=== PATIENT | female | born 1950 | race Caucasian/White ===

== ENCOUNTER 2023-04-15 18:25 | Outpatient (CLI) | payer MEDICARE, SELFPAY | END 2023-04-15 18:26 | disposition home or self-care (01) | LOC: AMB 04-20 11:55 | PROVIDERS: Visit Provider Family Medicine | DX: R55 Syncope and collapse (principal) | CPT/HCPCS: A0425; A0427 ==

== ENCOUNTER 2023-04-15 18:46 | Emergency (ER) | payer MEDICARE, SELFPAY ==
[2023-04-15 18:51] VITALS: BP 129/81; PULSE 75; RESP 18; TEMP 36.8; O2SAT 94; BMI 28.3
[2023-04-15 19:00] VITALS: PULSE 65; O2SAT 98
[2023-04-15 19:02] VITALS: BP 131/80; PULSE 66; O2SAT 96
[2023-04-15 19:15] VITALS: PULSE 63; O2SAT 98
--- NOTE | 2023-04-15 19:20 | ED_ITS ---
HPI - General Adult General Chief complaint: Syncope/Fainted Stated complaint: Syncopal Time Seen by Provider: 04/15/23 19:03 History of Present Illness HPI narrative: walking and sudden onset of weakness, by stander states syncopal episode. upon arrival to ED, pt states she feels a little better 72-year-old woman presenting to the emergency department after an apparent syncopal event. She had actually been sitting at the time and will then began to feel lightheaded and passed out. Has been a long day. Has been up and out at [employer]. Feels that she was keeping up on fluids. There was no sense of palpitations or irregular heartbeat. Does not have a history of migraines. No family history of sudden cardiac unusual arrhythmias. No vomiting or nausea. Is feeling a little better. I perceive her to be a little ?goofy? in conversation. No history of seizures. No loss of bowel or bladder control. Does admit that she did not have much to eat today. Related Data Home Medications Medication Instructions Recorded Confirmed lisinopril 04/15/23 simvistatin 04/15/23 Allergies Allergy/AdvReac Type Severity Reaction Status Date / Time Sulfa (Sulfonamide Allergy Verified 04/15/23 18:55 Antibiotics) Review of Systems Status of ROS: Reports: 6 or more systems reviewed and unremarkable except as noted in History and below Exam Narrative: Exam Narrative: Seems a little odd ?goofy? affect. I would question her recall and clarity of thought otherwise. Cranial nerves 2-12 intact. Speaking fluidly. Breathing easily. Lungs clear. Heart in regular rate and rhythm without murmur rub or gallop. Abdomen is soft nontender. She is moving all extremities with good strength. There is no significant edema. Head is atraumatic. Neck is supple nontender back also nontender. No indication of trauma on her person Const: Vital Signs, click to edit/add: Vital Signs - 24 hr 04/15/23 18:51 04/15/23 19:00 04/15/23 19:02 Temperature 98.3 F Pulse Rate 65 66 Pulse Rate [Right Pulse Oximeter] 75 Pulse Rate [orthos tatic lying Right Pulse Oximeter] Pulse Rate [orthos tatic sitting Righ t Pulse Oximeter] Pulse Rate [orthos tatic standing Rig ht Pulse Oximeter] Respiratory Rate 18 Blood Pressure 131/80 Blood Pressure [Ri ght Upper Arm] 129/81 Blood Pressure [or thostatic lying Ri ght Arm] Blood Pressure [or thostatic sitting Right Arm] Blood Pressure [or thostatic standing ] Pulse Oximetry 94 98 96 Oxygen Delivery Me thod Room Air 04/15/23 19:15 04/15/23 19:32 04/15/23 19:32 Temperature Pulse Rate 63 69 Pulse Rate [Right Pulse Oximeter] Pulse Rate [orthos tatic lying Right Pulse Oximeter] 82 Pulse Rate [orthos tatic sitting Righ t Pulse Oximeter] 84 Pulse Rate [orthos tatic standing Rig ht Pulse Oximeter] 84 Respiratory Rate Blood Pressure 135/68 Blood Pressure [Ri ght Upper Arm] Blood Pressure [or thostatic lying Ri ght Arm] 141/82 H Blood Pressure [or thostatic sitting Right Arm] 142/98 H Blood Pressure [or thostatic standing ] 147/81 H Pulse Oximetry 98 95 Oxygen Delivery Me thod 04/15/23 19:33 04/15/23 19:33 Temperature Pulse Rate 64 Pulse Rate [Right Pulse Oximeter] Pulse Rate [orthos tatic lying Right Pulse Oximeter] Pulse Rate [orthos tatic sitting Righ t Pulse Oximeter] Pulse Rate [orthos tatic standing Rig ht Pulse Oximeter] Respiratory Rate Blood Pressure Blood Pressure [Ri ght Upper Arm] Blood Pressure [or thostatic lying Ri ght Arm] Blood Pressure [or thostatic sitting Right Arm] Blood Pressure [or thostatic standing ] Pulse Oximetry 99 96 Oxygen Delivery Me thod Documenting provider has reviewed patient's vital signs: yes Course Vital Signs Vital signs: Initial Vital Signs Temperature 98.3 F 04/15/23 18:51 Temperature Source Temporal Artery Scan 04/15/23 18:51 Pulse Rate 75 04/15/23 18:51 Respiratory Rate 18 04/15/23 18:51 Blood Pressure 129/81 04/15/23 18:51 Blood Pressure Mean 97 04/15/23 18:51 Blood Pressure Position Sitting 04/15/23 18:51 Pulse Oximetry 94 04/15/23 18:51 Oxygen Delivery Method Room Air 04/15/23 18:51 Vital Signs Temperature 98.3 F 04/15/23 18:51 Pulse Rate 75 04/15/23 18:51 Respiratory Rate 18 04/15/23 18:51 Blood Pressure 129/81 04/15/23 18:51 Pulse Oximetry 94 04/15/23 18:51 Oxygen Delivery Method Room Air 04/15/23 18:51 Temperature 98.3 F 04/15/23 18:51 Pulse Rate 64 04/15/23 19:33 Respiratory Rate 18 04/15/23 18:51 Blood Pressure 141/82 H 04/15/23 19:32 Pulse Oximetry 96 04/15/23 19:33 Oxygen Delivery Method Room Air 04/15/23 18:51 Medical Decision Making MDM Narrative Medical decision making narrative: Syncopal event of unclear etiology. Certainly include includes headache, seizure, cardiac arrhythmia, pulmonary embolus, un revealed infectious etiology, ischemic cardiovascular event, cerebrovascular event or malignancy. IVs established will be receiving L of normal saline initially. We discussed head imaging and a chest x-ray particularly to evaluate cardiac silhouette. It is intermittent feel she is fine and does not need any intervention family is more concerned. Ultimately decided to proceed with workup as delineated here. Chest x-ray and head CT reviewed by me look to be unremarkable. Labs as well are reassuring. Monitor on playground monitor during time in the emergency department without event. Cognitively much more clear I would say and much less ?goofy?. Patient and family agree. See patient discharge plan Lab Data Lab results reviewed: Yes I reviewed the patient's lab results Labs: Lab Results 04/15/23 Range/Units 18:54 WBC 5.99 (4.50-11.00) K/uL RBC 4.43 (4.00-5.20) m/uL Hgb 14.2 (12.0-16.0) gm/dL Hct 42.5 (33.0-51.0) % MCV 96 (80-100) fL MCH 32 (26-34) pg MCHC 33 (32-36) gm/dL RDW Coeff of Reinaldo 12.7 (11.5-15.5) % Plt Count 138 L (140-440) K/uL Neut % (Auto) 50.9 (42.0-72.0) % Lymph % (Auto) 33.9 (20-44) % [place] % (Auto) 8.5 (0.0-11.0) % Eos % (Auto) 6.2 (0.0-7.0) % Baso % (Auto) 0.3 (0.0-3.0) % Neut # (Auto) 3.05 (1.7-7.0) K/uL Lymph # (Auto) 2.03 (0.90-2.90) K/uL [place] # (Auto) 0.50 (0.00-0.90) K/UL Eos # (Auto) 0.37 (0.00-0.50) K/uL Baso # (Auto) 0.02 (0.00-0.30) K/uL Abs Immat Gran (auto) 0.01 (0.00-0.30) K/uL Imm/Tot Granulo (auto) 0.2 % Sodium 137 (135-149) mmol/L Potassium 4.1 (3.6-5.1) mmol/L Chloride 103 (96-114) mmol/L Carbon Dioxide 26 (20-32) mmol/L Anion Gap 8 (7-15) mEq/L BUN 16 (7-30) mg/dL Creatinine 0.7 (0.5-1.5) mg/dL Estimated Creat Clear 43.30 Estimated GFR 93 ml/min Glucose 144 H (60-115) mg/dL Calcium 9.7 (8.4-10.6) mg/dL Magnesium 2.2 (1.5-2.6) mg/dL Troponin I < 0.01 L (0.01-0.04) ng/mL C-Reactive Protein < 0.5 L (0.5-1.0) mg/dL NT-Pro-B Natriuret Pep 83 pg/mL ECG Data Attestation: I personally reviewed and interpreted this ECG as follows: (Normal sinus rhythm at a rate of 73. Without ischemic changes.) Discharge Plan Discharge Clinical Impression: Syncope Patient Disposition: Home w/ Parent or Adult Condition: Improved Instructions: Syncope (ED) Additional Instructions: You probably were little dehydrated and had not had enough to eat today. It was a long day. I think it is hard to say what exactly caused this event today. I would focus on staying well hydrated going forward. Get a good night's rest. If you have recurrent feelings of lightheadedness I would follow-up for re- evaluation. Might follow-up with your primary care provider to discuss this visit further and whether not further workup particularly with emphasis on cardiac is indicated. Activity Level: No Restrictions Discharge Diet: Regular Prescriptions: No Action lisinopril simvistatin Stand Alone Forms: [employer] Info Instructions
[2023-04-15 19:32] VITALS: BP 135/68; BP 141/82; BP 142/98; BP 147/81; PULSE 69; PULSE 82; PULSE 84; O2SAT 95
--- NOTE | 2023-04-15 19:32 | CRLHL7_ITS ---
For Patients: As a result of the Century Cures Act, medical imaging exams and procedure reports are released immediately into your electronic medical record. You may view this report before your referring provider. If you have questions, please contact your health care provider. INDICATION: Syncope. COMPARISON: None. TECHNIQUE: Noncontrast CT head. FINDINGS: Normal brain parenchymal morphology. No acute intracranial hemorrhage, acute infarct, mass effect, or fracture. No midline shift. No abnormal ventricular dilatation. Normal calvarium and skull base. Visualized paranasal sinuses mastoid air cells are clear. Normal orbits bilaterally. IMPRESSION: 1. No acute intracranial abnormality. Please note that all CT scans at this facility use dose modulation, iterative reconstruction, and/or weight-based dosing when appropriate to reduce radiation dose to as low as reasonably achievable. Dictated by Gallo Valadez MD @ 04/15/2023 8:04:06 PM (Electronically Signed)
--- NOTE | 2023-04-15 19:32 | CRLHL7_ITS ---
For Patients: As a result of the Cures Act, medical imaging exams and procedure reports are released immediately into your electronic medical record. You may view this report before your referring provider. If you have questions, please contact your health care provider. INDICATION: Syncope COMPARISON: None TECHNIQUE: Single-view study FINDINGS: TUBES AND LINES: None. HEART AND MEDIASTINUM: The heart size is normal. The mediastinal contour appears normal for patient age. LUNGS AND PLEURAL SPACES: The lungs appear normal.The pleural spaces are unremarkable. OSSEOUS STRUCTURES: Age-appropriate appearance. No acute focal finding. IMPRESSION: No evidence of active pulmonary disease. Dictated by Peter Venegas MD @ 04/15/2023 8:54:15 PM (Electronically Signed)
[2023-04-15 19:33] VITALS: PULSE 64; O2SAT 96; O2SAT 99
[2023-04-15] MEDS: 0.9 % SODIUM CHLORIDE 1000 ml 1,000 ML IV (19:41)
[2023-04-15 19:46] LABS: Basophils Absolute Auto 0.02 K/uL (0.00-0.30); Basophils Percent Auto 0.3 % (0.0-3.0); Eosinophils Absolute Auto 0.37 K/uL (0.00-0.50); Eosinophils Percent Auto 6.2 % (0.0-7.0); Hematocrit 42.5 % (33.0-51.0); Hemoglobin* 14.2 gm/dL (12.0-16.0); Immature Granulocytes Abs Auto 0.01 K/uL (0.00-0.30); Immature Granulocytes Pct Auto 0.2 %; Lymphocytes Absolute Auto 2.03 K/uL (0.90-2.90); Lymphocytes Percent Auto 33.9 % (20-44); Mean Corpuscular HGB Conc 33 gm/dL (32-36); Mean Corpuscular Hemoglobin 32 pg (26-34); Mean Corpuscular Volume 96 fL (80-100); Monocytes Percent Auto 8.5 % (0.0-11.0); Neutrophils Absolute Auto 3.05 K/uL (1.7-7.0); Neutrophils Percent Auto 50.9 % (42.0-72.0); Platelet Count* 138 K/uL (140-440); RDW Coefficient of Variation % 12.7 % (11.5-15.5); Red Blood Count 4.43 m/uL (4.00-5.20); White Blood Count* 5.99 K/uL (4.50-11.00)
[2023-04-15 19:50] LABS: Slide Review Reflex No
[2023-04-15 19:53] LABS: Chloride* 103 mmol/L (96-114); Potassium* 4.1 mmol/L (3.6-5.1); Sodium* 137 mmol/L (135-149)
[2023-04-15 19:56] LABS: Anion Gap 8 mEq/L (7-15); Blood Urea Nitrogen* 16 mg/dL (7-30); Carbon Dioxide* 26 mmol/L (20-32); Creatinine* 0.7 mg/dL (0.5-1.5); Estimated Glomerular Filt Rate 93 ml/min; Glucose* 144 mg/dL (60-115)
[2023-04-15 19:57] LABS: Calcium* 9.7 mg/dL (8.4-10.6); Magnesium* 2.2 mg/dL (1.5-2.6)
[2023-04-15 20:01] LABS: C Reactive Protein* < 0.5 mg/dL (0.5-1.0)
[2023-04-15 20:11] LABS: NT Pro B Type NatriureticPept* 83 pg/mL; Troponin I* < 0.01 ng/mL (0.01-0.04)
--- OUTSIDE RECORDS SUMMARY | 2023-04-15 21:28 | XMS_ITS | Continuity of Care Document ---
Author Name Unknown Organization [facility] Address [address] [address] [place] [address] Phone Care Team Providers Care Dormitory Maid Name Role Phone Tyrel Navarro MD Unavailable Unavailable Allergies, Adverse Reactions, Alerts Substance Reaction Status Criticality Sulfa (Sulfonamide Antibiotics) rash, swelling Active No Information Medications Medication Instructions Dosage Effective Dates (start - stop) Status Comments simvastatin 20 mg tablet take 1 tablet by oral route every day in the evening 20 MG - Active zolpidem 10 mg tablet take 1 tablet by oral route every day at bedtime 10 MG - Active aspirin 81 mg chewable tablet chew 1 tablet by oral route every day 81 MG - Active LISINOPRIL-HYDROCHL OROTHIAZIDE (unknown strength) take 1 tablet by oral route every day Not Available - Active Procedures Procedure Date Colonoscopy Flex; W/remov Les- 20 Level Iv-surg Path Gross/micro 20 Colonoscopy Flex; W/remov Les- 11 Level Iv-surg Path Gross/micro 11 Advance Directives Directive Yes / No Effective Date File Name No Information Encounters Encounter Description Practice Location Reason(s) For Visit Diagnoses Date Provider Providers Copied on Encounter [facility], [address] [address], [place], [place], [id number], tel:[phone] [facility] No Information 0 Ramon Sarah. [address] [facility] [facility] [address], [place], [place], [id number] , [place]. tel:[phone] [facility], [address] [address], [place], [place], [id number], [place] tel:[phone] [facility] Colorectal polypsDiverticulo sis of colon without diverticulitisEnc ounter for screening for malignant neoplasm of colonDvrtclos of lg int w/o perforation or abscess w/o bleeding 0 Ramon Sarah. [address] [facility] [facility], [place], [place], [address] , [place]. tel:[phone] Referring Provider: Ez Kahn, [address] [place], [address]. tel:[phone] [facility], [address] [address], [place], [place], [address], [place] tel:[phone] [facility] No Information 9 Ana Farr. [address], [place], [place], [address] , [place]. tel: [phone] [facility], [address] [address], [place], [place], [address], [place] tel:[phone] [facility] Diverticulosis Of ColonColon Cancer ScreeningDivertic ulosis Of ColonBenign Neoplasm Lg Bowel 1 Ramon Sarah. [address] [facility] [address], [place], [place], [address] , [place]. tel:[phone] Referring Provider: Ez Kahn, [address] [place], [address]. tel:[phone] Family History Family Member Type Diagnosis Age At Onset Son Problem (finding) Alive and well Father Problem (finding) Brother Problem (finding) Alive and well Mother Problem (finding) Alive and well Mother Problem (finding) Immunizations Vaccine Date Status Comments Pneumovax administered Note: [facility] bi-d irectional interface ; Source: Other Registry Prevnar 13 administered Note: [facility] bi-d irectional interface ; Source: Other Registry Influenza, seasonal, injectable administe red Note: [facility] bi- directional interface ; Source: Other Registry tetanus toxoid, reduced diphtheria toxoid, and acellular pertussis vaccine, adsorbed administered Note: [facility] b i-directional interface ; Source: Other Registry tetanus and diphtheria toxoi ds, adsorbed, preservative free, for adult use (2 Lf of tetanus toxoid and 2 Lf of diphtheria toxoid) administered Note: [facility] bi-direct ional interface ; Source: Other Registry Payers Payer name Insurance type Covered alliance party ID Estefaniaeri south(s) Blue Cross Medicare Advantage [id number] Social History Type Description Quantity Date Captured Comments Sex Female Smoking Status No Information Chief Complaint And Reason For Visit No Information Reason For Referral Reason For Referral No Information History Of Present Illness Encounter Date Complaint History Of Prese nt Illness No Information Functional Status Date Functional Assessmen t No Information Instructions Date Instruction Additional Infor mation Diverticulosis/Diverticulitis Re lated to Colorectal polyps Colon Polyps Related to Color ectal polyps Colon Cancer Prevention Related to Colorectal polyps Diverticulosis/Diverticulitis Re lated to Colorectal polyps High Fiber Diet Related to Color ectal polyps Assessments Type Assessment Date No Information Patient Care Teams Name Effective Dates (start - stop) Status Members No Information
--- OUTSIDE RECORDS SUMMARY | 2023-04-15 21:28 | XMS_ITS | Continuity of Care Document ---
Author Name Unknown Organization [facility] Address [address] [address] [place] [address] Phone Care Team Providers Care Marine Structural Designer Name Role Phone Tyrel Navarro MD Unavailable [...] Encounter [facility], [address] [address], [place], [place], [id number], tel:[phone] [facility] No Information 0 Ramon Sarah. [address] [facility], [place], [place], [address] , [place]. tel:[phone] [facility], [address] [address], [place], [place], [address], [place] tel:[phone] [facility] Colorectal polypsDiverticulo sis of colon without diverticulitisEnc ounter for screening for malignant neoplasm of colonDvrtclos of lg int w/o perforation or abscess w/o bleeding 0 Ramon Sarah. [address] [address], [place], [place], [address] , [place]. tel:[phone] Referring Provider: Ez Kahn, [address] [place], [address]. tel:[phone] [facility], [address] [address], [place], [place], [address], [place] tel:[phone] [facility] No Information 9 Ana Farr. [address] [facility], [place], [place], [address] , [place]. tel: [phone] [facility], [address] [address], [place], [place], [address], [place] tel:[phone] [facility] Diverticulosis Of ColonColon Cancer ScreeningDivertic ulosis Of ColonBenign Neoplasm Lg Bowel 1 Ramon Sarah. [address] [facility], [place], [place], [address] , [place]. tel:[phone] Referring Provider: Ez Kahn, [address] [place], [address]. tel:[phone] Family History Family Member Type Diagnosis Age At Onset Son Problem (finding) Alive and well Father Problem (finding) Brother Problem (finding) Alive and well Mother Problem (finding) Alive and well Mother Problem (finding) Immunizations Vaccine Date Status Comments Pneumovax administered Note: [facility] bi-d irectional interface ; Source: Other Registry [...] 2 Lf of diphtheria toxoid) administered Note: [facility] bi-direct ional interface ; Source: Other Registry Payers Payer name Insurance type Covered democrat ID Estefaniaeri south(s) Blue Cross Medicare Advantage [id number] Social History Type Description Quantity Date [...]
== END 2023-04-15 21:28 | disposition home or self-care (01) ==
PROVIDERS: Emergency Provider Family Medicine
DX: R55 Syncope and collapse (principal)
CPT/HCPCS: 36415; 70450; 71045; 80048; 83735; 83880; 84484; 85025; 86140; 93005; 94761; 99284; 99285; J7030